=== PATIENT | female | born 1995 | race Caucasian/White ===

== ENCOUNTER 2024-04-26 01:38 | Emergency (ER) | payer MEDICAID ==
[~2024-04-26] VITALS: Ht 170.2 cm; Wt 111.8 kg
[2024-04-26 01:45] VITALS: BP 151/85; PULSE 87; RESP 18; O2SAT 97
[2024-04-26 02:19] VITALS: TEMP 98.2
== END 2024-04-26 02:26 | disposition home or self-care (01) ==
LOC: ER 01:40
DX: T19.2XXA Foreign body in vulva and vagina, initial encounter (principal); W44.9XXA Unspecified foreign body entering into or through a natural orifice, initial encounter
CPT/HCPCS: 99284